=== PATIENT | male | born 1980 | race Two or more races ===

== ENCOUNTER 2021-01-23 11:45 | Emergency (ER) | payer OTHER ==
[~2021-01-23] VITALS: Ht 182.9 cm; Wt 90.7 kg
--- NOTE | 2021-01-23 12:23 | NUR ---
Complaints he was at work injures his testicles now has pain waiting for md wallace
[2021-01-23 12:38] VITALS: BP 128/80
[2021-01-23] MEDS ORDERED: HYDROcodone/Acetamin 5/325 tab ORAL ONE (13:00)
[2021-01-23] MEDS ORDERED: Lidocaine 1% 10mg/ml/Epi 0.005mg/ml 10ml INJ ONE (13:14)
[2021-01-23 13:20] LABS: ANION GAP 9 mmol/L (5-15); BLOOD UREA NITROGEN 16 mg/dL (7-18); CALCIUM 9.6 MG/DL (8.5-10.1); CARBON DIOXIDE 29 MMOL/L (21-32); CHLORIDE 103 MMOL/L (98-107); POTASSIUM 3.7 MMOL/L (3.5-5.1); SODIUM 141 MMOL/L (136-145)
[2021-01-23 13:26] LABS: ALANINE AMINOTRANSFERASE 38 U/L (12-78); ALBUMIN 4.3 G/DL (3.4-5.0); ALKALINE PHOSPHATASE 110 U/L (46-116); ASPARTATE AMINO TRANSFERASE 28 U/L (15-37); BILIRUBIN,TOTAL 0.5 MG/DL (0.2-1.0)
[2021-01-23 13:28] LABS: EOSINOPHILS % (AUTO) 0.3 % (0.0-3.0); HEMATOCRIT 51.2 % (42.0-52.0); HEMOGLOBIN 16.2 G/DL (14.2-18.0); LYMPHOCYTES % (AUTO) 17.5 % (20.0-45.0); MEAN CORPUSCULAR VOLUME 88 FL (80-99); NEUTROPHILS % (AUTO) 77.2 % (45.0-75.0); PLATELET COUNT 240 K/UL (150-450); RED BLOOD COUNT 5.83 M/UL (4.70-6.10); RED CELL DISTRIBUTION WIDTH 12.9 % (11.6-14.8); WHITE BLOOD COUNT 9.3 K/UL (4.8-10.8)
[2021-01-23] MEDS ORDERED: ceFAZolin sod 1 GM in NS 55 ML IVPB ONE (13:45)
[2021-01-23] MEDS ORDERED: Lidocaine 1%/ 10mg/ml/EPI 0.01mg/ml 20ml INJ ONE (13:45)
[2021-01-23] MEDS ORDERED: AUGMENTIN 875-1 EAC1 ORAL (14:55)
[2021-01-23] MEDS ORDERED: ACETAMINOPHEN500 M3 ORAL (14:55)
--- NOTE | 2021-01-23 17:57 | Diagnostic Imaging Report ---
Indications: History of penetrating trauma Technique: Grayscale and duplex images of the scrotum Comparison: none Findings:The right testicle measures 3.7cm in length. It demonstrates normal echogenicity. Normal Doppler flow. Normal epididymis. Hypoechoic material adjacent to the spermatic cord may reflect a small hematoma or hemorrhagic fluid. Small calcifications are seen within the right testicular parenchyma. The left testicle measures 3.9 cm in length. It demonstrates normal echogenicity and normal Doppler flow. Normal epididymis. Impression: No evidence of acute testicular trauma Small amount of fluid around the right spermatic cord, could indicate a small hematoma or hemorrhagic fluid Scattered right testicular microcalcifications
--- NOTE | 2021-01-24 16:14 | Emergency Room Report ---
History of Present Illness General Chief Complaint: General Complaint Source: Patient Present Illness HPI Patient is a 40-year-old male presents for increased scrotal pain after injury at work. patient denies any prior past medical history. Had injury shortly prior to arrival. 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 This had penetrated the scrotal area. Denies feeling dizzy or lightheaded. Denies any current testicular pain. Had been able to urinate normally after the injury. Had presented to a clinic and was told to go to the emergency department. Reports having tetanus vaccine approximately 6 years ago. 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 Patient History Past Medical History: see triage record Reviewed Nursing Documentation: PMH: Agreed; PSxH: Agreed Nursing Documentation-PMH Past Medical History: No Stated History Review of Systems All Other Systems: negative except mentioned in HPI Physical Exam Vital Signs Date Time Temp Pulse Resp B/P (MAP) Pulse Ox O2 Delivery O2 Flow Rate FiO2 01/23/21 12:13 98.1 78 18 128/80 (96) 96 Room Air Sp02 EP Interpretation: reviewed, normal General Appearance: normal inspection, well appearing, no apparent distress, alert, GCS 15, non-toxic Head: atraumatic ENT: normal ENT inspection, hearing grossly normal, normal voice Neck: normal inspection, full range of motion, supple, no bony tend Respiratory: normal inspection, lungs clear, normal breath sounds, no respiratory distress, no retraction, no wheezing Cardiovascular #1: regular rate, rhythm, no edema Gastrointestinal: normal inspection, normal bowel sounds, non tender, soft, no guarding, no hernia Genitourinary: no CVA tenderness Musculoskeletal: normal inspection, back normal, normal range of motion Neurologic: alert, motor strength/tone normal, setter up III-XII nml as tested, oriented x3, responsive, speech normal, normal inspection Psychiatric: normal inspection, judgement/insight normal, mood/affect normal Skin: other - Laceration to the midline scrotal area just inferior to the penis. Does not involve urethra or vas deferens. approximately 2 cm flap Procedures Laceration/Wound Repair Laceration/Wound Repair : Consent: Emergent Wound Location: other - Scrotum Wound's Depth, Shape: flap Wound Length (cm): 2 Wound Explored: clean Irrigated w/ Saline (ccs): 150 Betadine Prep?: Yes Anesthesia: Lidocaine w/ Epi Volume Anesthetic (ccs): 3 Wound Debrided: minimal Wound Repaired With: sutures Suture Size/Type: 3:0, other - Chromic gut Number of Sutures: 3 Layer Closure?: No Patient Tolerated: Well Complications: None Progress I discussed the patient's wound with urology Dr. Smyth. He advised repair techniques. Wound was irrigated copiously and supple interrupted sutures were placed through the scrotum with good approximation and adequate bleeding control. Medical Decision Making Diagnostic Impression: Primary Impression: Scrotal laceration ER Course Patient presents for laceration. Differential diagnosis include was not limited to laceration, foreign body, scrotal injury, among others. Because of complexity of patient's case laboratory tests and imaging studies were ordered. Patient's laceration was thoroughly explored and irrigated. He was given IV Ancef. I discussed the patient's case with urology Dr. Smyth. He advised repair techniques. Scrotal ultrasound was performed which showed : Impression: No evidence of acute testicular trauma Small amount of fluid around the right spermatic cord, could indicate a small hematoma or hemorrhagic fluid Scattered right testicular microcalcifications Patient was placed on light duty for work. Patient was advised to follow-up with Dr. Smyth and wound care techniques. He was given prescription for oral antibiotics. He was advised to return if worse. This medical record is generated with [employer] etcher hand software. There may be some etcher hand discrepancies related to use of this software Last Vital Signs Date Time Temp Pulse Resp B/P (MAP) Pulse Ox O2 Delivery O2 Flow Rate FiO2 01/23/21 12:38 98.1 18 128/80 96 Room Air 01/23/21 12:21 78 Status: improved Disposition: HOME, SELF-CARE Condition: Stable Scripts Acetaminophen* (ACETAMINOPHEN EXTRA STRENGTH*) 500 Mg Tablet 500 MG ORAL Q8H PRN for Fever/Headache/Mild Pain, #30 TAB Prov: Harry Camacho MD 01/23/21 Amoxicillin/Potassium Clav 875-125* (AUGMENTIN 875-125 TABLET*) 1 Each Tablet 1 TAB ORAL TWICE A DAY, #14 TAB Prov: Harry Camacho MD 01/23/21 Referrals: NOT CHOSEN IPA/,REFERRING (PCP) Patient Instructions: Laceration Care, Adult Additional Instructions: Follow up with urology for recheck. Return if worse. Harry Camacho MD Jan 24, 2021 16:14
== END 2021-01-23 15:51 | disposition home or self-care (01) ==
LOC: EMR 13:59
DX: S31.31XA Laceration without foreign body of scrotum and testes, initial encounter (principal); W19.XXXA Unspecified fall, initial encounter; Y92.9 Unspecified place or not applicable; Y99.0 Civilian activity done for income or pay
CPT/HCPCS: 12041; 36415; 76870; 80053; 85025; 85610; 85730; 96365; 99284; J0690